=== PATIENT | male | born 1940 | race Caucasian/White ===

== ENCOUNTER 2019-02-07 19:12 | Emergency (ER) | payer MEDICARE, OTHER ==
[2019-02-07 19:47] LABS: ADD MAN DIFF? NO
[2019-02-07] MEDS: SOD CHLORIDE 0.9% 1,000 ML IV (19:47)
[2019-02-07 19:48] LABS: BASOPHILS % 0.3 % (0.0-2.0); EOSINOPHILS # 0.1 10^3/ul (0.0-0.5); EOSINOPHILS % 1.1 % (0.0-7.0); HEMOGLOBIN 11.4 g/dl (14.0-18.0); LYMPHOCYTES # 2.2 10^3/ul (0.8-2.9); LYMPHOCYTES % 31.5 % (15.0-51.0); MEAN CORPUSCULAR HEMOGLOBIN 30.2 pg (29.0-33.0); MEAN CORPUSCULAR HGB CONC 31.7 g/dl (32.0-37.0); MEAN CORPUSCULAR VOLUME 95.5 fl (82.0-101.0); MONOCYTE # 0.6 10^3/ul (0.3-0.9); MONOCYTES % 8.5 % (0.0-11.0); NEUTROPHIL # 4.1 10^3/ul (1.6-7.5); NEUTROPHILS % 58.3 % (39.0-77.0); PLATELET COUNT 215 10^3/UL (140-415); RED BLOOD COUNT 3.77 10^6/ul (4.70-6.10); RED CELL DISTRIBUTION WIDTH 15.9 % (11.5-14.5)
[2019-02-07 19:55] LABS: ALANINE AMINOTRANSFERASE 14 IU/L (13-69); ALBUMIN 3.5 g/dl (3.3-4.9); ALKALINE PHOSPHATASE 47 IU/L (42-121); ANION GAP 7 (5-13); ASPARTATE AMINO TRANSFERASE 21 IU/L (15-46); BILIRUBIN,INDIRECT 0.4 mg/dl (0-1.1); BILIRUBIN,TOTAL 0.4 mg/dl (0.2-1.3); BLOOD UREA NITROGEN 17 mg/dl (7-20); CALCIUM 8.4 mg/dl (8.4-10.2); CARBON DIOXIDE 28 mmol/L (21-31); CHLORIDE 102 mmol/L (97-110); GLUCOSE 150 mg/dl (70-220); LIPASE 76 U/L (23-300); POTASSIUM 4.5 mmol/L (3.5-5.1); SODIUM 137 mmol/L (135-144)
[2019-02-07 20:07] LABS: TROPONIN-I < 0.012 ng/ml (0.000-0.120)
[2019-02-07 20:08] LABS: INR 1.05; PARTIAL THROMBOPLASTIN TIME 27.7 Sec (23.0-35.0); PROTIME 13.8 Sec (11.9-14.9); PT RATIO 1.1
[2019-02-07 20:34] LABS: ADD UMIC NO; UR ASCORBIC ACID NEGATIVE (NEGATIVE); UR BILIRUBIN (Dip) NEGATIVE (NEGATIVE); UR BLOOD (Dip) NEGATIVE (NEGATIVE); UR CLARITY CLEAR (CLEAR); UR COLOR AMBER (YELLOW); UR GLUCOSE (Dip) NEGATIVE (NEGATIVE); UR KETONES (Dip) TRACE mg/dL (NEGATIVE); UR LEUKOCYTE ESTERASE (Dip) NEGATIVE Leu/ul (NEGATIVE); UR NITRITE (Dip) NEGATIVE (NEGATIVE); UR SPECIFIC GRAVITY (Dip) 1.016 (1.003-1.030); UR TOTAL PROTEIN (Dip) NEGATIVE (NEGATIVE); UR UROBILINOGEN (Dip) NEGATIVE (NEGATIVE)
== END 2019-02-07 22:10 | disposition home or self-care (01) ==
LOC: E/R 19:12
DX: E86.0 Dehydration (principal); I10 Essential (primary) hypertension; G20 Parkinson's disease; M79.604 Pain in right leg
CPT/HCPCS: 36415; 80053; 81003; 83690; 84484; 85025; 85610; 85730; 86850; 86900; 86901; 87086; 93005; 99284-25

== ENCOUNTER 2019-02-11 14:37 | Emergency (ER) | payer MEDICARE, OTHER ==
[2019-02-11] MEDS: CARBIDOPA/LEVODOPA (25/250) TAB PO (17:45)
[2019-02-11] MEDS: ENTACAPONE 200 MG TAB PO (17:45)
== END 2019-02-11 19:00 | disposition home or self-care (01) ==
LOC: FTE 14:37
DX: H57.11 Ocular pain, right eye (principal); I10 Essential (primary) hypertension; G20 Parkinson's disease
CPT/HCPCS: 99283

== ENCOUNTER 2019-03-04 14:32 | Emergency (ER) | payer MEDICARE, OTHER ==
[2019-03-04 15:13] LABS: ADD MAN DIFF? NO
[2019-03-04 15:17] LABS: BASOPHILS % 0.2 % (0.0-2.0); EOSINOPHILS # 0.1 10^3/ul (0.0-0.5); EOSINOPHILS % 0.8 % (0.0-7.0); HEMATOCRIT 35.9 % (42.0-52.0); HEMOGLOBIN 11.3 g/dl (14.0-18.0); LYMPHOCYTES # 1.7 10^3/ul (0.8-2.9); LYMPHOCYTES % 20.4 % (15.0-51.0); MEAN CORPUSCULAR HEMOGLOBIN 30.8 pg (29.0-33.0); MEAN CORPUSCULAR HGB CONC 31.5 g/dl (32.0-37.0); MEAN CORPUSCULAR VOLUME 97.8 fl (82.0-101.0); MEAN PLATELET VOLUME 9.9 fl (7.4-10.4); MONOCYTE # 0.8 10^3/ul (0.3-0.9); NEUTROPHIL # 5.7 10^3/ul (1.6-7.5); NEUTROPHILS % 68.2 % (39.0-77.0); PLATELET COUNT 210 10^3/UL (140-415); RED BLOOD COUNT 3.67 10^6/ul (4.70-6.10)
[2019-03-04 15:17] LABS: WHITE BLOOD COUNT 8.4 10^3/ul (4.8-10.8)
[2019-03-04 15:38] LABS: PROTIME 14.3 Sec (11.9-14.9); PT RATIO 1.1
[2019-03-04 15:39] LABS: ALANINE AMINOTRANSFERASE 11 IU/L (13-69); ALBUMIN 3.5 g/dl (3.3-4.9); ALBUMIN/GLOBULIN RATIO 1.12; ALKALINE PHOSPHATASE 50 IU/L (42-121); ANION GAP 5 (5-13); ASPARTATE AMINO TRANSFERASE 19 IU/L (15-46); BILIRUBIN,INDIRECT 0.7 mg/dl (0-1.1); BILIRUBIN,TOTAL 0.7 mg/dl (0.2-1.3); BLOOD UREA NITROGEN 26 mg/dl (7-20); CALCIUM 8.2 mg/dl (8.4-10.2); CARBON DIOXIDE 30 mmol/L (21-31); CHLORIDE 104 mmol/L (97-110); CREATININE 1.02 mg/dl (0.61-1.24); GLUCOSE 128 mg/dl (70-220); POTASSIUM 4.7 mmol/L (3.5-5.1); SODIUM 139 mmol/L (135-144); TOTAL PROTEIN 6.6 g/dl (6.1-8.1)
[2019-03-04] MEDS: SOD CHLORIDE 0.9% 500 ML IV (15:46)
[2019-03-04 15:51] LABS: B-TYPE NATRIURETIC PEPTIDE 481 PG/ML (0-450); TROPONIN-I < 0.012 ng/ml (0.000-0.120)
[2019-03-04 17:08] LABS: ADD UMIC YES; UR ASCORBIC ACID NEGATIVE (NEGATIVE); UR BILIRUBIN (Dip) NEGATIVE (NEGATIVE); UR BLOOD (Dip) 1+ mg/dL (NEGATIVE); UR CLARITY CLOUDY (CLEAR); UR COLOR AMBER (YELLOW); UR GLUCOSE (Dip) NEGATIVE (NEGATIVE); UR KETONES (Dip) TRACE mg/dL (NEGATIVE); UR LEUKOCYTE ESTERASE (Dip) 3+ Leu/ul (NEGATIVE); UR MUCUS FEW /HPF (NONE SEEN); UR NITRITE (Dip) NEGATIVE (NEGATIVE); UR RBC 94 /HPF (0-5); UR TOTAL PROTEIN (Dip) NEGATIVE (NEGATIVE); UR UROBILINOGEN (Dip) NEGATIVE (NEGATIVE); UR WBC > 182 /HPF (0-5)
[2019-03-04] MEDS: CEFTRIAXONE 1 GM/50 ML (PMX) 50 ML IVPB (17:43)
[2019-03-04] MEDS ORDERED: ENTACAPONE 200 MG TAB PO (18:00)
[2019-03-04] MEDS: ENTACAPONE 200 MG TAB PO (18:24)
[2019-03-04] MEDS: CARBIDOPA/LEVODOPA (25/250) TAB PO (18:24)
== END 2019-03-04 18:49 | disposition home or self-care (01) ==
LOC: E/R 14:32
DX: N30.01 Acute cystitis with hematuria (principal); R40.2142 Coma scale, eyes open, spontaneous, at arrival to emergency department; R40.2362 Coma scale, best motor response, obeys commands, at arrival to emergency department; R40.2252 Coma scale, best verbal response, oriented, at arrival to emergency department; D64.9 Anemia, unspecified; R79.89 Other specified abnormal findings of blood chemistry; E86.0 Dehydration; I10 Essential (primary) hypertension; G20 Parkinson's disease; Z79.01 Long term (current) use of anticoagulants
CPT/HCPCS: 36415; 71045; 80053; 81001; 82962; 83880; 84484; 85025; 85610; 93005; 96374; 99285-25

== ENCOUNTER 2019-03-06 14:23 | Emergency (ER) | payer MEDICARE ==
[2019-03-06] MEDS: FLUDROCORTISONE 0.1 MG TAB PO (15:26)
== END 2019-03-06 16:20 | disposition home or self-care (01) ==
LOC: E/R 14:23
DX: I95.9 Hypotension, unspecified (principal); E27.9 Disorder of adrenal gland, unspecified; I10 Essential (primary) hypertension; G20 Parkinson's disease
CPT/HCPCS: 99283

== ENCOUNTER 2019-03-15 13:06 | Emergency (ER) | payer MEDICARE ==
[2019-03-15] MEDS ORDERED: NITROFURANTOIN (SR) 100 MG CAP PO (13:30)
[2019-03-15 13:55] LABS: ADD UMIC NO; UR ASCORBIC ACID NEGATIVE (NEGATIVE); UR BILIRUBIN (Dip) NEGATIVE (NEGATIVE); UR BLOOD (Dip) NEGATIVE (NEGATIVE); UR CLARITY CLEAR (CLEAR); UR COLOR AMBER (YELLOW); UR GLUCOSE (Dip) NEGATIVE (NEGATIVE); UR KETONES (Dip) TRACE mg/dL (NEGATIVE); UR LEUKOCYTE ESTERASE (Dip) NEGATIVE Leu/ul (NEGATIVE); UR NITRITE (Dip) NEGATIVE (NEGATIVE); UR SPECIFIC GRAVITY (Dip) 1.021 (1.003-1.030); UR TOTAL PROTEIN (Dip) NEGATIVE (NEGATIVE); UR UROBILINOGEN (Dip) NEGATIVE (NEGATIVE)
[2019-03-15] MEDS: CIPROFLOXACIN 500 MG TAB PO (14:28)
[2019-03-15] MEDS: PHENAZOPYRIDINE 100 MG TAB PO (14:29)
== END 2019-03-15 16:15 | disposition home or self-care (01) ==
LOC: E/R 13:06
DX: N30.90 Cystitis, unspecified without hematuria (principal); I10 Essential (primary) hypertension; G20 Parkinson's disease; Z79.02 Long term (current) use of antithrombotics/antiplatelets
CPT/HCPCS: 81003; 87086; 99283